=== PATIENT | female | born 1995 | race Caucasian/White ===

== ENCOUNTER 2020-02-05 22:50 | Emergency (ER) | payer OTHER ==
[2020-02-05 22:57] VITALS: BP 139/92
[2020-02-05] MEDS ORDERED: HYDROCODONE/ACETAMINOPHEN 5-325 MG TABLET PO ONE (23:27)
[2020-02-05] MEDS ORDERED: IBUPROFEN 800 MG TABLET PO ONE (23:27)
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
== END 2020-02-05 23:48 | disposition home or self-care (01) ==
LOC: ER 22:50
DX: T23.262A Burn of second degree of back of left hand, initial encounter (principal); T23.212A Burn of second degree of left thumb (nail), initial encounter; X12.XXXA Contact with other hot fluids, initial encounter; Y93.89 Activity, other specified; Y99.0 Civilian activity done for income or pay
CPT/HCPCS: 99284